=== PATIENT | male | born 1950 | race Caucasian/White ===

== ENCOUNTER → 2018-01-19 | Outpatient (CLI) | payer MEDICARE ==
[2018-01-19 11:39] LABS: Basophils % (A) 0 %; Eosinophils # (A) 0.3 k/uL (0-0.7); Eosinophils % (A) 4 %; HCT 50.6 % (39.0-53.0); HGB 16.9 gm/dL (13.0-17.5); Lymphocytes # (A) 1.2 k/uL (1.0-4.8); Lymphocytes % (A) 18 %; MCH 29.1 pg (25.0-35.0); MCHC 33.4 g/dL (31.0-37.0); MCV 87.4 fL (80.0-100.0); Monocytes # (A) 0.4 k/uL (0-1.0); Monocytes % (A) 7 %; Neutrophils # (A) 4.4 k/uL (1.3-7.7); Neutrophils % (A) 68 %; Platelet Count 245 k/uL (150-450); RBC 5.79 m/uL (4.30-5.90); WBC 6.4 k/uL (3.8-10.6)
[2018-01-19 12:11] LABS: Albumin 4.2 g/dL (3.5-5.0); Calcium 9.4 mg/dL (8.4-10.2); Potassium 4.4 mmol/L (3.5-5.1); Total Bilirubin 0.7 mg/dL (0.2-1.3); Total Protein 7.1 g/dL (6.3-8.2)
[2018-01-19 12:19] LABS: T4, Free (Free Thyroxine) 1.06 ng/dL (0.78-2.19)
[2018-01-19 19:07] LABS: Hemoglobin A1C 5.3 % (4.0-6.0)
== END ==
LOC: LABWHC1 10:38
PROVIDERS: ATTEND Internal Medicine Geriatric Medicine
DX: I10 Essential (primary) hypertension (principal); E78.00 Pure hypercholesterolemia, unspecified; R79.9 Abnormal finding of blood chemistry, unspecified
CPT/HCPCS: 36415; 80053; 80061; 83036; 84439; 84443; 85025

== ENCOUNTER → 2019-01-02 | Outpatient (CLI) | payer MEDICARE, BC ==
[2019-01-02 11:59] LABS: Basophils # (A) 0.1 k/uL (0-0.2); Basophils % (A) 2 %; Eosinophils # (A) 0.3 k/uL (0-0.7); Eosinophils % (A) 4 %; HCT 49.9 % (39.0-53.0); HGB 17.3 gm/dL (13.0-17.5); Lymphocytes # (A) 1.1 k/uL (1.0-4.8); Lymphocytes % (A) 17 %; MCH 30.5 pg (25.0-35.0); MCHC 34.7 g/dL (31.0-37.0); MCV 87.8 fL (80.0-100.0); Monocytes # (A) 0.4 k/uL (0-1.0); Monocytes % (A) 5 %; Neutrophils # (A) 4.6 k/uL (1.3-7.7); Neutrophils % (A) 70 %; Platelet Count 262 k/uL (150-450); RBC 5.69 m/uL (4.30-5.90); WBC 6.5 k/uL (3.8-10.6)
[2019-01-02 17:19] LABS: African American GFR (CKD) 80.6 (60.0-200.0); Albumin 4.5 g/dL (3.80-4.90); Albumin/Globulin Ratio 2.05 (1.60-3.17); Anion Gap 3.5 mmol/L (4.00-12.00); BUN/Creat Ratio 20.91 Ratio (12.00-20.00); Calcium 9.7 mg/dL (8.7-10.3); Carbon Dioxide 31.5 mmol/L (21.6-31.8); Globulin 2.2 g/dL (1.6-3.3); Potassium 4.5 mmol/L (3.5-5.5); Total Bilirubin 0.5 mg/dL (0.3-1.2); Total Protein 6.7 g/dL (6.2-8.2)
[2019-01-02 18:33] LABS: Hemoglobin A1C 5.5 % (4.0-6.0)
== END | disposition home or self-care (01) ==
LOC: LABWHC1 11:20
PROVIDERS: ATTEND Internal Medicine Geriatric Medicine
DX: R79.9 Abnormal finding of blood chemistry, unspecified (principal); E78.2 Mixed hyperlipidemia; I10 Essential (primary) hypertension; N40.0 Benign prostatic hyperplasia without lower urinary tract symptoms
CPT/HCPCS: 36415; 80053; 83036; 84153; 84439; 84443; 85025

== ENCOUNTER → 2024-04-16 | Outpatient (CLI) | payer MEDICARE ==
[2024-04-16 09:22] LABS: HGB 16.5 gm/dL (13.0-17.5); MCH 29.5 pg (25.0-35.0); MCV 89.3 fL (80.0-100.0); Mean Platelet Volume 9.1; Platelet Count 253 k/uL (150-450); RDW 13.2 % (11.5-15.5); WBC 6.2 k/uL (3.8-10.6)
[2024-04-16 09:29] LABS: Partial Thromboplastin Time 24.5 sec (22.0-30.0)
[2024-04-16 09:30] LABS: ALT 32 U/L (4-49); AST 33 U/L (17-59); African American GFR (CKD) 88 (>60 ml/min/1.73 sqM); Albumin 4.7 g/dL (3.5-5.0); Alkaline Phosphatase 72 U/L (38-126); Anion Gap 5 mmol/L; Blood Urea Nitrogen 30 mg/dL (9-20); Calcium 9.9 mg/dL (8.4-10.2); Carbon Dioxide 32 mmol/L (22-30); Chloride 106 mmol/L (98-107); Globulin 2.4 g/dL; Glucose 94 mg/dL (74-99); Non-African American GFR(CKD) 76 (>60 ml/min/1.73 sqM); Potassium 4.4 mmol/L (3.5-5.1); Sodium 143 mmol/L (137-145); Total Bilirubin 0.4 mg/dL (0.2-1.3); Total Protein 7.1 g/dL (6.3-8.2)
--- NOTE | 2024-04-16 10:34 | CT ---
EXAMINATION TYPE: CT chest wo/w con CT DLP: 1715.6 mGycm, Automated exposure control for dose reduction was used. DATE OF EXAM: 04/16/2024 10:18 AM COMPARISON: None CLINICAL INDICATION:Male, 74 years old with history of adenoid cystic ca; PHH, adenoid cystic carcino ma of mouth TECHNIQUE: Multiple axial images were obtained through the chest before and after the uneventful admi nistration of 100 mL of Isovue-300 intravenously . Coronal and sagittal reformats reviewed. FINDINGS: LUNGS/ PLEURA: No pleural effusion, pneumothorax, or focal consolidation. Several bilateral lower lo be pulmonary nodules identified including a right lower lobe 5.3 mm pulmonary nodule (series 11, imag e 38), right lower lobe 6 mm solid pulmonary nodule (series 11, image 41), right lower lobe 4.7 mm so lid pulmonary nodule (series 11, image 43), left lower lobe 3.9 mm pulmonary nodule (series 11, image 24), left lower lobe 3.8 mm pulmonary nodule (series 11, image 45), left lower lobe 9.7 mm pulmonary nodule (series 11, image 54). Right lower lobe 4.1 mm pulmonary nodule (series 11, image 26), and a left lower lobe 6.4 mm solid pulmonary nodule (series 11, image 58). AIRWAY: Patent and unremarkable.. HEART: Size within normal limits.Trace pericardial effusion. Tiny atherosclerotic plaque within the L AD. MEDIASTINUM: No evidence of adenopathy. VASCULATURE: No aortic aneurysm. MUSCULOSKELETAL: No acute osseous abnormalities. No aggressive osseous lesion. Multilevel degenerativ e disc disease with anterior spurring. SOFT TISSUES/LYMPH NODES: Minimal bilateral gynecomastia. LOWER NECK: No significant findings. UPPER ABDOMEN: Subcentimeter hypodense focus within the left hepatic dome which is too small to categ orize but likely represents a cyst. IMPRESSION: Several subcentimeter nonspecific bilateral lower lobe pulmonary nodules. Metastasis is not excluded. Correlation with any prior imaging is recommended. Otherwise considered continued surveillance. Most of the nodules are below the threshold for PET CT. [facility], , 04/16/2024 10:32 AM
--- NOTE | 2024-04-16 11:01 | CT ---
EXAMINATION TYPE: CT soft tissue neck wo/w con, CT facial bones wo/w con CT DLP: 1715.6 (accession [id number]), 1554.2 (accession [id number]) mGycm, Automated exposure control fo r dose reduction was used. DATE OF EXAM: 04/16/2024 10:18 AM COMPARISON: CT facial bones and chest of the same date. CLINICAL INDICATION:Male, 74 years old with history of adenoid cystic ca; PHH, adenoid cystic carcino ma of mouth TECHNIQUE: Standard enhanced CT of the neck and facial bones before and after the uneventful intraven ous administration of 100 cc of Isovue 300. Axial sections with coronal and sagittal reformats were obtained. FINDINGS: Brain: Visualized portions are grossly unremarkable. Orbits: Bilateral aphakia otherwise unremarkable. Sinuses: Grossly unremarkable. Suprahyoid Neck: The parapharyngeal and retropharyngeal spaces are clear and symmetric. Asymmetric hy podense prominence in the region of the left submandibular gland measuring up to 1.7 cm (series 3, im age 64). There is a well demarcated border along the lateral aspect. The nasopharynx is unremarkable. Infrahyoid Neck: The larynx, hypopharynx, and supraglottic area are clear and symmetric. Parotid Glands: Unremarkable. Submandibular Glands: Unremarkable. Musculoskeletal: Degenerative disc disease changes of the visualized spine are present. No acute osse ous abnormality. No aggressive osseous lesion. Dental amalgam creates streak artifact which limits ev aluation. Lymph nodes: Few nonenlarged lymph nodes are seen along both anterior chains of the neck. Vascular structures: Visualized major arteries are patent without evidence of aneurysm. Thoracic Inlet/airway: Airway is patent. The lung apices are clear. Soft tissues/Thyroid: Thyroid and remainder of the soft tissues are unremarkable. Other: none. 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 No definitive evidence for metastasis within the neck. [facility], , 04/16/2024 10:59 AM
--- NOTE | 2024-04-16 12:41 | MR ---
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 IV Contrast: 7.5 cc Gadavist (None if empty) TECHNIQUE: Multiplanar, multisequence images of the brain and brainstem were acquired before and aft er administration of 7.5 mL IV Gadavist. Diffusion weighted imaging is performed. Additional coned in sequences along the base of the skull before and after IV contrast. FINDINGS: Brain: No evidence for acute infarction, hemorrhage, mass, mass effect, midline shift, herniation, effacemen t of basal cisterns, or extra-axial fluid collection. The ventricles and sulci are age-appropriate. Mild volume loss overlying the bilateral cerebral conve xities. Major intracranial flow voids are intact. T2/FLAIR weighted sequences show no significant white matter signal abnormality. Midline structures demonstrate normal morphology. The craniocervical junction is normal. Post contrast images demonstrate no evidence of pathologic enhancement. Dural venous sinuses are pat ent. IACs: There is no cerebellopontine angle mass. The internal auditory canals are symmetric. Brainstem and skull base abnormalities are not seen. Post contrast images demonstrate no evidence of pathologic enhancement in the posterior cranial maddy a or the internal auditory canals. There is no abnormal enhancement of the labyrinths. The area of asymmetric soft tissue prominence in the region of the left sublingual gland described on separate CT is not well depicted by MRI. No clear identifiable mass along the left palate. There is trace mucosal thickening ethmoid air cells. Globes appear intact. Slight rightward nasal sep fan deviation. Mastoid air cells are clear. IMPRESSION (brain and IACs): 1. No acute intracranial abnormality seen. No enhancing intracranial lesions. Mild age-related cerebr al atrophy. 2. The area of asymmetric soft tissue prominence in the region of the left sublingual gland described on separate CT is not well depicted by MRI. No clear identifiable mass along the left palate on the present study. [facility], , 04/16/2024 12:38 PM
[2024-04-16 16:18] LABS: Prealbumin 24.1 mg/dL (18.0-42.0)
== END | disposition home or self-care (01) ==
LOC: RADCTMAIN 08:41
PROVIDERS: ATTEND Dentist Oral and Maxillofacial Surgery
DX: C80.1 Malignant (primary) neoplasm, unspecified (principal); K13.79 Other lesions of oral mucosa; R91.8 Other nonspecific abnormal finding of lung field
CPT/HCPCS: 84134; 84481; 80053; 84443; 85027; 85610; 85730; 70488; 70492; 71270; 36415; 70553; A9585; Q9967

== ENCOUNTER → 2024-04-30 | Outpatient (CLI) | payer MEDICARE ==
[2024-04-30 17:04] LABS: INR 0.9 (<1.2); Prothrombin Time 9.9 sec (10.0-12.5)
--- NOTE | 2024-04-30 17:28 | XR ---
EXAMINATION TYPE: XR chest 2V DATE OF EXAM: 04/30/2024 4:49 PM COMPARISON: None CLINICAL INDICATION: Male, 74 years old with history of R91.1 SOLITARY LUNG NODULE; [facility] TECHNIQUE: XR chest 2V Frontal and lateral views of the chest. FINDINGS: Lungs/Pleura: No lung nodules visualized. There is no evidence of pleural effusion, focal consolidati on, or pneumothorax. Pulmonary vascularity: Unremarkable. Heart/mediastinum: Cardiomediastinal silhouette is unremarkable. Musculoskeletal: No acute osseous pathology. IMPRESSION: 1. No acute cardiopulmonary disease/process. 2. No lung nodules visualized. [facility], , 04/30/2024 5:26 PM
[2024-05-01 02:23] LABS: Basophils # (A) 0.03 X 10*3/uL (0.00-0.10); Basophils % (A) 0.4 %; Eosinophils # (A) 0.42 X 10*3/uL (0.04-0.35); Eosinophils % (A) 5.5 %; HGB 16.4 g/dL (13.0-17.0); Lymphocytes # (A) 1.17 X 10*3/uL (0.90-5.00); Lymphocytes % (A) 15.2 %; MCH 28.9 pg (27.0-32.0); MCHC 32.2 g/dL (32.0-37.0); MCV 89.9 FL (80.0-97.0); Mean Platelet Volume 12.5 FL (9.5-12.2); Monocytes # (A) 0.77 X 10*3/uL (0.20-1.00); NRBC Per 100 WBC 0 X 10*3/uL (0.00-0.01); Neutrophils # (A) 5.27 X 10*3/uL (1.80-7.70); Neutrophils % (A) 68.5 %; Platelet Count 281 X 10*3/uL (140-440); RBC 5.67 X 10*6/uL (4.40-5.60); RDW 12.8 % (11.5-14.5); WBC 7.69 X 10*3/uL (4.50-10.00)
[2024-05-01 03:42] LABS: ALT 27 U/L (10-49); AST 27 U/L (14-35); Albumin 4.6 g/dL (3.8-4.9); Albumin/Globulin Ratio 1.92 Ratio (1.60-3.17); Alkaline Phosphatase 106 U/L (41-126); Blood Urea Nitrogen 22.2 mg/dL (9.0-27.0); Calcium 9.4 mg/dL (8.7-10.3); Carbon Dioxide 25.9 mmol/L (21.6-31.8); Chloride 105 mmol/L (96-109); Globulin 2.4 g/dL (1.6-3.3); Glucose 91 mg/dL (70-110); Potassium 4.5 mmol/L (3.5-5.5); Sodium 143 mmol/L (135-145); Total Bilirubin 0.5 mg/dL (0.3-1.2)
== END | disposition home or self-care (01) ==
LOC: LABWHC1 16:15
PROVIDERS: ATTEND Internal Medicine Geriatric Medicine
DX: Z01.812 Encounter for preprocedural laboratory examination (principal); R79.1 Abnormal coagulation profile; R91.1 Solitary pulmonary nodule
CPT/HCPCS: 36415; 71046; 80053; 85025; 85610; 85730

== ENCOUNTER → 2024-11-21 | Outpatient (CLI) | payer MEDICARE ==
[2024-11-21 11:13] LABS: Albumin 4.5 g/dL (3.8-4.9); Anion Gap 9.90 mmol/L (4.00-12.00); BUN/Creat Ratio 25.80 Ratio (12.00-20.00); Blood Urea Nitrogen 25.8 mg/dL (9.0-27.0); Calcium 9.4 mg/dL (8.7-10.3); Carbon Dioxide 28.1 mmol/L (21.6-31.8); Chloride 105 mmol/L (96-109); Glucose 97 mg/dL (70-110); Potassium 4.6 mmol/L (3.5-5.5); Sodium 143 mmol/L (135-145)
== END | disposition home or self-care (01) ==
LOC: LABWHC1 07:08
PROVIDERS: ATTEND Dentist Oral and Maxillofacial Surgery
DX: C80.1 Malignant (primary) neoplasm, unspecified (principal)
CPT/HCPCS: 36415; 80069